=== PATIENT | female | born 1990 | race Caucasian/White ===

== ENCOUNTER 2019-11-16 13:53 | Emergency (ER) | payer OTHER, SELFPAY ==
--- NOTE | 2019-11-16 13:58 | ED.GENADULT ---
HPI - General Adult General Chief complaint: Dental/Oral Stated complaint: Tooth Ache Time Seen by Provider: 11/16/19 14:08 Source: patient Mode of arrival: ambulatory Limitations: no limitations History of Present Illness HPI narrative: 29-year-old female patient presents to the [facility] with complaints of left upper dental pain that started last week. Patient states that she bit on something and noticed a little bit of pain to the left upper tooth. Patient states that last night she was eating and states that the pain increased. Patient states she has been taking 400 mg of ibuprofen today for the pain. Patient states she does have a dentist to follow-up with but has not called them yet. Related Data Allergies Allergy/AdvReac Type Severity Reaction Status Date / Time lidocaine Allergy Unknown Shakiness Verified 11/16/19 14:09 Review of Systems Review of Systems: Narrative: CONSTITUTIONAL: Denies fever, chills, or sweats. EYES: Denies visual changes, redness, or discharge. ENT: Denies rhinorrhea, congestion, sore throat, or otalgia. Positive left upper dental pain since last week with increased pain yesterday CARDIOVASCULAR: Denies chest pain, palpitations, or edema. RESPIRATORY: Denies cough or dyspnea. GASTROINTESTINAL: Denies abdominal pain, nausea, vomiting, or diarrhea. GENITOURINARY: Denies dysuria or hematuria. SKIN: Denies rash or itching. MUSCULOSKELETAL: Denies back pain, joint pain, or myalgia. NEUROLOGIC: Denies headache, numbness, or weakness. PSYCHIATRIC: Denies anxiety or depression. PMFSH Comments At the time of my signature I agree with nursing past medical history, surgical, social, and family history. There is no relevant family history pertinent to the presenting complaint. Exam Narrative: Exam Narrative: GENERAL: Well-appearing, well-nourished, and in no acute distress. HEAD: Normocephalic, atraumatic. EYES: PERRLA and EOMI. ENT: Nares clear, no rhinorrhea or epistaxis. Mucous membranes moist. Patient has a broken tooth noted to the left upper incisor. There is some surrounding erythema and a small possible dental abscess is palpated and left upper ethmoid area. Patient does have very slight swelling noted to the left cheek on exam. There is no open wounds or drainage noted on inspection of the oral cavity at this time. NECK: Supple. No lymphadenopathy CHEST: Clear to auscultation. No respiratory distress. HEART: Regular rate and rhythm. No murmur heard. Normal peripheral pulses. ABDOMEN: Soft, nontender, nondistended, normal active bowel sounds. EXTREMITIES: Normal range of motion. No edema. SKIN: Warm, dry, no rash. NEURO: No focal deficits. Alert and oriented x3. Course Vital Signs Vital signs: Vital Signs Temperature 37.1 C 11/16/19 14:01 Pulse Rate 97 11/16/19 14:01 Respiratory Rate 16 11/16/19 14:01 Blood Pressure 123/66 11/16/19 14:01 Pulse Oximetry 98 11/16/19 14:01 Temperature 37.1 C 11/16/19 14:01 Pulse Rate 97 11/16/19 14:01 Respiratory Rate 16 11/16/19 14:01 Blood Pressure 123/66 11/16/19 14:01 Pulse Oximetry 98 11/16/19 14:01 Vital signs reviewed. Medical Decision Making Differential Diagnosis Differential Diagnosis: Differential diagnosis: Dental caries, periodontal disease, avulsed tooth, tooth infections, mandibular infection, Mc's angiana, upper tooth infection, dry socket, gingivitis, acute necrotizing ulcerative gingivitis, sialolithiasis. Discussed with patient that we will go ahead and place her on antibiotics today and she can continue taking ibuprofen to help with the pain and I want her to call and follow-up with her dentist for she is most likely going to need that tooth removed. Patient verbalized understanding of this denies any other questions or concerns at this time. Vital Signs Vital Signs: Vital Signs Temperature 37.1 C 11/16/19 14:01 Pulse Rate 97 11/16/19 14:01 Respiratory Rate 16 11/16/19 14:01 Blood P
[2019-11-16 14:01] VITALS: BP 123/66; PULSE 97; RESP 16; TEMP 37.1; O2SAT 98
== END 2019-11-16 14:15 | disposition home or self-care (01) ==
PROVIDERS: Emergency Provider Nurse Practitioner Family
DX: K04.7 Periapical abscess without sinus (principal)
CPT/HCPCS: 99213; G0463

== ENCOUNTER 2020-12-11 11:44 | Emergency (ER) | payer OTHER, SELFPAY ==
[2020-12-11 11:48] VITALS: BP 126/82; PULSE 91; RESP 20; TEMP 37.2; O2SAT 99
--- NOTE | 2020-12-11 12:03 | ED.DENTAL ---
HPI - Dental/Oral General Chief complaint: Dental/Oral Stated complaint: tooth pain Time Seen by Provider: 12/11/20 11:55 Source: patient, RN notes reviewed and old records reviewed Mode of arrival: ambulatory Limitations: no limitations History of Present Illness HPI Narrative: 30 year old female who presents to [facility] care with complaints of dental pain to the right lower most posterior molar for 1 week duration. Patient states that she had a dental exam at the dental school and she has had pain to area of #31 tooth ever since. Patient states that the back portion of the tooth is broken off and she does have some surrounding redness and swelling of gum around tooth.. She has numerous decayed teeth and missing teeth in mouth with history of poor dental care. She has jose taking Ibuprofen for her discomfort with last dose at 3pm yesterday. MD Complaint: tooth pain Location: Tooth # (31) Onset (ago): day(s) (2) Duration: intermittent Severity: moderate Severity scale (1-10): 7 Exacerbating factors: chewing Context: history of dental caries Associated symptoms: gum swelling Treatment prior to arrival: oral analgesic Related Data Allergies Allergy/AdvReac Type Severity Reaction Status Date / Time lidocaine AdvReac Unknown Shakiness Verified 12/11/20 11:48 Review of Systems Review of Systems: CONSTITUTIONAL: Denies fever, chills, or sweats. EYES: Denies visual changes, redness, or discharge. ENT: Denies rhinorrhea, congestion, sore throat, or otalgia. positive for dental pain with caries CARDIOVASCULAR: Denies chest pain, palpitations, or edema. RESPIRATORY: Denies cough or dyspnea. GASTROINTESTINAL: Denies abdominal pain, nausea, vomiting, or diarrhea. GENITOURINARY: Denies dysuria or hematuria. SKIN: Denies rash or itching. MUSCULOSKELETAL: Denies back pain, joint pain, or myalgia. NEUROLOGIC: Denies headache, numbness, or weakness. PSYCHIATRIC Positive history anxiety or depression. All systems reviewed & are unremarkable except as noted in HPI and below PMFSH Past Medical History Medical History (Updated 12/18/20 @ 15:22 by Bettye Chatman NP) Anxiety Ear infection History of dental problems Surgical History Surgical History (Updated 12/18/20 @ 15:22 by Bettye Chatman NP) No history of previous surgery Family History Family History (Updated 12/18/20 @ 15:23 by Bettye Chatman NP) Father Hypertension Social History Social History (Updated 12/18/20 @ 15:24 by Bettye Chatman NP) Smoking status: Never smoker Alcohol intake: current Alcohol use details: rare social Substance use: never Living arrangements: with family Gender identity (if verbalized by the patient): Female Comments At time of signature, agree with nursing past medical, surgical, social and family history. There is no relevant family history pertinent to the presenting complaint Exam Narrative: GENERAL: Well-appearing, well-nourished, and in no acute distress. HEAD: Normocephalic, atraumatic. EYES: PERRLA and EOMI. ENT: Nares clear, no rhinorrhea or epistaxis. Mucous membranes moist.TM's jim throat normal with no lesions or exudates, no tonsil enlargement, Numerous areas of dental decay noted, #31 tooth has back portion broken off with some redness and swelling of surrounding gum, no drainage noted NECK: Supple.no lymphadenopathy CHEST: Clear to auscultation. No respiratory distress.SAO2 99% on room air HEART: Regular rate and rhythm. No murmur heard. Normal peripheral pulses. ABDOMEN: Soft, nontender, nondistended, normal active bowel sounds. EXTREMITIES: Normal range of motion. No edema. SKIN: Warm, dry, no rash. NEURO: No focal deficits. Alert and oriented x3. Course Vital Signs Vital signs: Vital Signs Temperature 37.2 C 12/11/20 11:48 Pulse Rate 91 12/11/20 11:48 Respiratory Rate 20 12/11/20 11:48 Blood Pressure 126/82 12/11/20 11:48 Pulse Oximetry 99 12/11/20 11:48 Temperature
== END 2020-12-11 12:25 | disposition home or self-care (01) ==
PROVIDERS: Emergency Provider Registered Nurse
DX: K04.7 Periapical abscess without sinus (principal)
CPT/HCPCS: 99213; G0463

== ENCOUNTER 2021-03-14 10:35 | Emergency (ER) | payer OTHER, SELFPAY ==
--- NOTE | 2021-03-14 10:42 | ED.DENTAL ---
HPI - Dental/Oral General Chief complaint: Dental/Oral Stated complaint: Facial Swelling Time Seen by Provider: 03/14/21 10:42 Source: patient and RN notes reviewed History of Present Illness HPI Narrative: Patient is a 30-year-old female who presents the urgent care with right jaw swelling. Patient states that it started last night and she has taken ibuprofen. 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 States that the last time she was on antibiotics for dental was in December. Denies of any fever, chills, nausea, vomiting. No other acute complaints. No acute distress noted. Patient aware of the plan of care. Some parts of this dictation were generated by voice recognition software and may contain typographical and/or grammatical inaccuracies. Related Data Allergies Allergy/AdvReac Type Severity Reaction Status Date / Time lidocaine AdvReac Unknown Shakiness Verified 03/14/21 10:51 Review of Systems Review of Systems: CONSTITUTIONAL: Denies fever, chills, or sweats. EYES: Denies visual changes, redness, or discharge. ENT: Denies rhinorrhea, congestion, sore throat, or otalgia. Reports of right lower jaw swelling and dental pain CARDIOVASCULAR: Denies chest pain, palpitations, or edema. RESPIRATORY: Denies cough or dyspnea. GASTROINTESTINAL: Denies abdominal pain, nausea, vomiting, or diarrhea. GENITOURINARY: Denies dysuria or hematuria. SKIN: Denies rash or itching. MUSCULOSKELETAL: Denies back pain, joint pain, or myalgia. NEUROLOGIC: Denies headache, numbness, or weakness. All other systems reviewed are negative, except as documented in HPI. [facility] Past Medical History Medical History (Updated 03/14/21 @ 11:08 by MOLLY Garcia) Anxiety Ear infection History of dental problems Surgical History Surgical History (Updated 12/18/20 @ 15:22 by Bettye Chatman NP) No history of previous surgery Family History Family History (Updated 12/18/20 @ 15:23 by Bettye Chatman NP) Father Hypertension Social History Social History (Updated 12/18/20 @ 15:24 by Bettye Chatman NP) Smoking status: Never smoker Alcohol intake: current Alcohol use details: rare social Substance use: never Gender identity (if verbalized by the patient): Female Comments At the time of my signature, I reviewed and agree with the nursing past medical, surgical, social, and family history. There is no relevant family history pertinent to the patient complaint. Exam Narrative: GENERAL: This is a well-nourished, well-developed patient, in no apparent distress. HEAD: normocephalic, atraumatic. EYES: PERRL. Sclera clear/white. Vision is grossly intact. EARS: External ears normal, auditory canals clear and without drainage, TMs normal without perforation. Hearing grossly intact. NOSE: External nose normal with no obvious nasal discharge, nares without redness, no rhinorrhea. THROAT: Mucous membranes moist, posterior pharynx clear. NECK: Neck supple, non-tender without lymphadenopathy, masses or thyromegaly. DENTAL: Moderate firm right lower jaw edema with moderate tenderness. Avulsed premolar and molars to the right lower with surrounding erythema CARDIOVASCULAR: Regular rate and rhythm without murmurs, gallops, or rubs. RESPIRATORY: Clear to auscultation. Breath sounds equal bilaterally. No wheezes, rales, or rhonchi. SKIN: warm, intact with no suspicious lesions or rash, good texture and turgor. NEURO: awake, alert, and oriented to person, place and time. There were no obvious focal neurologic abnormalities. EXTREMITIES: No clubbing, cyanosis, or edema. Course Vital Signs Vital signs: Vital Signs Temperature 99 F 03/14/21 10:45 Pulse Rate 92 03/14/21 10:45 Respiratory Rate 18 03/14/21 10:45 Blood Pressure 110/70 03/14/21 10:45 Pulse Oximetry 99 03/14/21 10:45 Temperature 99 F 03/14/21 10:45 Pulse Rate 92 03/14/21 10
[2021-03-14 10:45] VITALS: BP 110/70; PULSE 92; RESP 18; TEMP 37.2; O2SAT 99
== END 2021-03-14 11:10 | disposition home or self-care (01) ==
PROVIDERS: Emergency Provider Nurse Practitioner Family
DX: K04.7 Periapical abscess without sinus (principal)
CPT/HCPCS: 99213; G0463